=== PATIENT | female | born 1960 | race Caucasian/White ===

== ENCOUNTER 2021-02-22 11:07 | Emergency (ER) | payer BC, SELFPAY ==
[2021-02-22 11:10] VITALS: BP 133/52; PULSE 61; RESP 18; TEMP 37.2; O2SAT 100
--- NOTE | 2021-02-22 11:11 | ED.URI ---
HPI - URI/Sore Throat General Chief Complaint: Upper Respiratory Infection Stated Complaint: cough w/shoulder blade Time Seen by Provider: 02/22/21 11:11 Source: patient and RN notes reviewed History of Present Illness HPI Narrative: Patient is a 60-year-old female who presents the urgent care with complaints of a 1 week cough without fever, nausea, vomiting. Patient denies of any chest pain but does report of some upper back pain especially with the cough. Patient states that she is here today to also get outpatient x-rays due to her degenerative disc disease and chronic back pain. Patient states that for her cough she has been taking Robitussin, DayQuil and Claritin-D. Patient states that the Claritin-D did seem to help with her symptoms. Patient states that she had a negative Covid test on Thursday. No other acute complaints. Denies of any chest pain or shortness of breath. No acute distress noted. Patient aware of the plan of care. Some parts of this dictation were generated by voice recognition software and may contain typographical and/or grammatical inaccuracies. Related Data Home Medications Medication Instructions Recorded Confirmed bupropion HCl 150 mg PO DAILY 02/22/21 02/22/21 pantoprazole 40 mg PO DAILY 02/22/21 02/22/21 sertraline 100 mg PO DAILY 02/22/21 02/22/21 tramadol 50 mg PO BID PRN 02/22/21 02/22/21 Allergies Allergy/AdvReac Type Severity Reaction Status Date / Time codeine Allergy Unknown Nausea and Verified 02/22/21 11:17 Vomiting Review of Systems Review of Systems: Narrative: CONSTITUTIONAL: Denies fever, chills, or sweats. EYES: Denies visual changes, redness, or discharge. ENT: Denies rhinorrhea, congestion, sore throat, or otalgia. CARDIOVASCULAR: Denies chest pain, palpitations, or edema. RESPIRATORY: Reports of nonproductive cough without wheezing or dyspnea GASTROINTESTINAL: Denies abdominal pain, nausea, vomiting, or diarrhea. GENITOURINARY: Denies dysuria or hematuria. SKIN: Denies rash or itching. MUSCULOSKELETAL: reports of acute on chronic back pain NEUROLOGIC: Denies headache, numbness, or weakness. All other systems reviewed are negative, except as documented in HPI. PMFSH Comments At the time of my signature, I reviewed and agree with the nursing past medical, surgical, social, and family history. There is no relevant family history pertinent to the patient complaint. Exam Narrative: Exam Narrative: GENERAL: This is a well-nourished, well-developed patient, in no apparent distress. HEAD: normocephalic, atraumatic. EYES: PERRL. Sclera clear/white. Vision is grossly intact. EARS: External ears normal, auditory canals clear and without drainage, TMs normal without perforation. Hearing grossly intact. NOSE: External nose normal with no obvious nasal discharge, nares without redness, no rhinorrhea. THROAT: Mucous membranes moist, posterior pharynx clear. Mild postnasal drainage NECK: Neck supple CARDIOVASCULAR: Regular rate and rhythm without murmurs, gallops, or rubs. RESPIRATORY: Clear to auscultation. Breath sounds equal bilaterally. No wheezes, rales, or rhonchi. SKIN: warm, intact with no suspicious lesions or rash, good texture and turgor. NEURO: awake, alert, and oriented to person, place and time. There were no obvious focal neurologic abnormalities. EXTREMITIES: No clubbing, cyanosis, or edema. Course Vital Signs Vital signs: Vital Signs Temperature 99 F 02/22/21 11:10 Pulse Rate 61 02/22/21 11:10 Respiratory Rate 18 02/22/21 11:10 Blood Pressure 133/52 L 02/22/21 11:10 Pulse Oximetry 100 02/22/21 11:10 Temperature 99 F 02/22/21 11:10 Pulse Rate 61 02/22/21 11:10 Respiratory Rate 18 02/22/21 11:10 Blood Pressure 133/52 L 02/22/21 11:10 Pulse Oximetry 100 02/22/21 11:10 Reviewed MDM - URI/Sore Throat MDM Narrative Medical decision making narrative: Advised the patient to practice smoking cessation. Use the steroid as di
== END 2021-02-22 11:30 | disposition home or self-care (01) ==
PROVIDERS: Emergency Provider Nurse Practitioner Family; PCP Hospitalist
DX: R05 Cough (principal); F41.9 Anxiety disorder, unspecified
CPT/HCPCS: 99213; G0463

== ENCOUNTER → 2021-02-22 11:12 | Outpatient (CLI) | payer BC, SELFPAY ==
--- NOTE | ~2021-02-22 | XR_ITS ---
XR thoracic spine 3V DATE: 02/22/2021 12:20 INDICATION: Midline thoracic back pain TECHNIQUE: AP, lateral, swimmer views COMPARISON: None FINDINGS: There is moderate degenerative disc disease and mild retrolisthesis at C5-6. Prominent degenerative disc disease and mild retrolisthesis at C6-7. Diffuse osteopenia. No fracture or dislocation or bone destruction of the thoracic spine. The thoracic pedicles are intac t. No paraspinal soft tissue thickening. IMPRESSION: Osteopenia Lower cervical spine degenerative disc disease Reviewed, dictated and finalized at location A.
--- NOTE | ~2021-02-22 | XR_ITS ---
XR lumbar spine min 4V DATE: 02/22/2021 12:20 INDICATION: Low back pain TECHNIQUE: Bilateral oblique views. AP, lateral, coned lateral lumbosacral views COMPARISON: None FINDINGS: Diffuse osteopenia. Normal alignment of the lumbar spine. No fracture or bone destruction, spondylolisthesis. The include d lower thoracic and lumbar pedicles are intact. The left L5 pars interarticularis appears attenuated or is possibly interrupted. CT evaluation would be helpful for more definitive evaluation. Lumbar and lumbosacral interspaces appear well preserved. The sacroiliac joints are intact. Mild left nephrolithiasis may be present. IMPRESSION: Left L5 pars interarticularis appears relatively attenuated or possibly not intact; CT jerrod mbar spine would be helpful for more definitive evaluation Possible left nephrolithiasis Reviewed, dictated and finalized at location A. IMPRESSION: Left L5 pars interarticularis appears relatively attenuated or poss ibly not intact; CT lumbar spine would be helpful for more definitive evaluatio n Possible left nephrolithiasis
== END ==
PROVIDERS: PCP Hospitalist; Visit Provider Hospitalist
DX: M85.88 Other specified disorders of bone density and structure, other site (principal); M51.36 Other intervertebral disc degeneration, lumbar region
CPT/HCPCS: 72072; 72110

== ENCOUNTER 2023-07-07 07:32 | Emergency (ER) | payer BC, SELFPAY ==
[2023-07-07 07:35] VITALS: BP 189/109; PULSE 89; RESP 20; TEMP 36.3; O2SAT 100
[2023-07-07 08:03] LABS: Basophils Absolute Auto 0.1 K/mm3 (0.0-0.1); Basophils Percent Auto 1.1 % (0.2-1.2); Eosinophils Absolute Auto 0.2 K/mm3 (0-0.3); Eosinophils Percent Auto 3.6 % (0-4.4); Hematocrit 44.3 % (37.0-47.0); Hemoglobin 14.4 g/dL (12.0-15.0); Immature Granulocyte Absolute 0.02 K/mm3 (0.00-0.031); Immature Granulocyte Percent A 0.3 % (0-0.5); Lymphocytes Absolute Auto 2.58 K/mm3 (0.9-3.2); Lymphocytes Percent Auto 42.3 % (18.3-44.2); Mean Corpuscular HGB Conc 32.5 g/dl (32-36); Mean Corpuscular Hemoglobin 30.6 pg (26-34); Mean Corpuscular Volume 94.1 fl (80-100); Mean Platelet Volume 9.1 fl (7.4-10.4); Monocytes Absolute Auto 0.6 K/mm3 (0.1-0.6); Monocytes Percent Auto 9.5 % (2.6-8.5); Neutrophils Absolute Auto 2.6 K/mm3 (1.3-6.7); Neutrophils Percent Auto 43.2 % (45.5-73.1); Platelet Count Result 373 k/mm3 (150-375); Red Blood Count 4.71 M/mm3 (4.2-5.4); Red Cell Distribution Width 13.3 % (11.5-14.5); White Blood Count 6.1 K/mm3 (4.5-10.0)
[2023-07-07 08:20] LABS: Alanine Aminotransferase 30 U/L (6-35); Albumin Level 4.6 g/dL (3.5-5.1); Alkaline Phosphatase 104 U/L (38-126); Anion Gap 8 mmol/L (8-16); Aspartate Amino Transferase 28 U/L (14-36); Bilirubin,Total 0.5 mg/dL (0.2-1.3); Blood Urea Nitrogen 14 mg/dL (7-17); Calcium 9.5 mg/dL (8.4-10.2); Carbon Dioxide 30 mmol/L (22-30); Chloride 101 mmol/L (98-107); Estimated CRCL calculation 90 ml/min; Estimated Glomerular Filt Rate > 60; Glucose 99 mg/dL (65-110); Potassium 4.8 mmol/L (3.4-5.0); Sodium 139 mmol/L (137-145)
[2023-07-07] MEDS: SODIUM CHLORIDE 0.9% IV 1,000 ML 999 ML IV CONT (08:28)
[2023-07-07] MEDS: ONDANSETRON INJ 4 MG/2 ML VIAL IV PUSH ×2 (08:28→13:27)
[2023-07-07 08:43] LABS: Influenza A QL RT-PCR Negative (Negative); Influenza B QL RT-PCR Negative (Negative); RSV RNA, RT-PCR Negative (Negative); SARS-CoV-2 RNA PCR Negative (Negative)
[2023-07-07 08:49] LABS: Bacteria Urine None Seen /hpf; Non Pathogenic Casts 0-2; RBC Urine 0-2 /hpf (0-2); Squamous Epithelial Cell Urine None seen /hpf (Few); WBC Urine 0-5 /hpf
--- NOTE | 2023-07-07 08:51 | ED.GENADULT ---
HPI - General Adult General Chief complaint: Nausea/Vomiting/Diarrhea Stated complaint: THROWING UP BLOOD Time Seen by Provider: 07/07/23 07:57 History of Present Illness HPI narrative: 62-year-old female presenting to the emergency department for evaluation of nausea vomiting and epigastric pain. patient states that she did have 2 episodes of emesis this morning and did have some blood tinged emesis. Patient states that it was mucus and blood streaked. Patient states on the 2nd emesis it was less blood. Patient denies being on any blood thinners and denies any prior history of GI bleed. Patient states she sometimes has very forceful emesis. Related Data Home Medications Medication Instructions Recorded Confirmed bupropion HCl 150 mg 24 hr tablet, 150 mg PO DAILY 02/22/21 02/22/21 extended release pantoprazole 40 mg tablet,delayed 40 mg PO DAILY 02/22/21 02/22/21 release sertraline 100 mg tablet 100 mg PO DAILY 02/22/21 02/22/21 tramadol 50 mg tablet 50 mg PO BID PRN Pain 02/22/21 02/22/21 Allergies Allergy/AdvReac Type Severity Reaction Status Date / Time codeine AdvReac Unknown Nausea and Verified 07/07/23 08:03 Vomiting Review of Systems Review of Systems: All systems reviewed & are unremarkable except as noted in HPI and below Exam Narrative: APPEARANCE: Well appearing, no pain, no distress, well-nourished. HEAD: normocephalic, atraumatic. EYES: PERRLA/EOMI, conjunctivae clear. NOSE: Normal no drainage EARS:TMS clear with good light reflex. THROAT: Pharynx clear, no exudate. NECK: Supple. No adenopathy, no masses. RESPIRATORY: Airway patent, respirations nonlabored. Clear to auscultation bilaterally, no rales, rhonchi, wheezing. CARDIOVASCULAR: Regular rate and rhythm without murmurs rubs or gallops. ABDOMINAL: Soft, nontender, nondistended, normal bowel sounds MUSCULOSKELETAL: Moves all extremities. Strength/ROM intact, No edema, No calf tenderness. NEURO: Alert. Cranial nerves II through XII intact. grossly intact SKIN: Warm, dry. Normal Color Course Course Emergency Course: 62-year-old female presenting to the ED for evaluation of nausea and vomiting. Patient reports that her nausea was improved in the ED. Patient is afebrile with no leukocytosis and a stable hemoglobin of 14.4. Patient has had no further hematemesis in the ED. Patient's CMP shows no significant abnormalities UA shows no significant underlying infection and patient was negative for influenza RSV and for COVID. Patient was updated on the plan for treatment and follow-up with GI. Patient was also encouraged close follow-up with her primary care physician. All questions and concerns were addressed patient was comfortable with the plan for discharge and close follow-up. Vital Signs Vital signs: Vital Signs Temperature 97.3 F L 07/07/23 07:35 Pulse Rate 89 07/07/23 07:35 Respiratory Rate 20 07/07/23 07:35 Blood Pressure 189/109 H 07/07/23 07:35 Pulse Oximetry 100 07/07/23 07:35 Oxygen Delivery Room Air 07/07/23 07:35 Temperature 97.3 F L 07/07/23 07:35 Pulse Rate 76 07/07/23 13:23 Respiratory Rate 14 07/07/23 13:23 Blood Pressure 139/73 07/07/23 13:23 Pulse Oximetry 98 07/07/23 13:23 Oxygen Delivery Room Air 07/07/23 07:35 Medical Decision Making Differential Diagnosis Differential Diagnosis: Nausea vomiting Vital Signs Vital Signs: Vital Signs Temperature 97.3 F L 07/07/23 07:35 Pulse Rate 89 07/07/23 07:35 Respiratory Rate 20 07/07/23 07:35 Blood Pressure 189/109 H 07/07/23 07:35 Pulse Oximetry 100 07/07/23 07:35 Oxygen Delivery Room Air 07/07/23 07:35 Temperature 97.3 F L 07/07/23 07:35 Pulse Rate 76 07/07/23 13:23 Respiratory Rate 14 07/07/23 13:23 Blood Pressure 139/73 07/07/23 13:23 Pulse Oximetry 98 07/07/23 13:23 Oxygen Delivery Room Air 07/07/23 07:35 Lab Data Lab results reviewed: Yes I reviewed
[2023-07-07 08:59] LABS: Appearance Urine Clear (Clear); Color Urine Yellow (Yellow)
[2023-07-07 09:00] LABS: Bilirubin Urine Negative (Negative); Blood Urine Trace-Lysed (Negative); Glucose Urine UA Negative (Negative); Ketones Urine Negative (Negative); Leukocyte Esterase Ur Negative LEU/UL (Negative); Nitrate Urine Negative (Negative); Protein Urine Negative (Negative); Specific Grav Ur 1.015 (1.001-1.035); Urobilinogen Urine 0.2 mg/dL (<2.0); pH Urine 7.5 (5.0-9.0)
[2023-07-07 09:03] LABS: Add Urine Microscopic? YES
[2023-07-07] MEDS: METOCLOPRAMIDE HCL INJ 10 MG/2 ML VIAL IV PUSH (09:28)
[2023-07-07 10:47] LABS: INR 0.9
[2023-07-07 10:49] LABS: Partial Thromboplastin Time 31.3 SECONDS (22.3-36.8)
[2023-07-07 11:09] VITALS: BP 143/86; PULSE 77; RESP 14; O2SAT 99
[2023-07-07 13:23] VITALS: BP 139/73; PULSE 76; RESP 14; O2SAT 98
== END 2023-07-07 13:33 | disposition home or self-care (01) ==
PROVIDERS: Emergency Provider Emergency Medicine; PCP Hospitalist
DX: R11.2 Nausea with vomiting, unspecified (principal); Z20.822 Contact with and (suspected) exposure to COVID-19
CPT/HCPCS: 36415; 80053; 81001; 85025; 85610; 85730; 87637; 96361; 96374; 96375; 96376; 99284; J2405; J2765; J7030